=== PATIENT | male | born 1965 | race Caucasian/White ===

== ENCOUNTER → 2023-04-13 | Outpatient (CLI) | payer MEDICAID ==
--- NOTE | 2023-04-14 07:28 | CA ---
Transthoracic Echo Report Name: Dominique Claire Age: 57 Gender: M : 1965 Exam Date: 04/13/2023 16:58 Exam Location: [facility] Ht (in): 72 Wt (lb): 185 Ordering Physician: Guanakito Mathews MD ([email or web address]) Attending/Referring Phys: Can Repairer Faby Figueroa RDCS Procedure CPT: Indications: I48.91 UNSPECIFIED ATRIAL FIBRILLATION Cardiac Hx: Technical Quality: Fair Contrast 1: Total Dose (mL): Contrast 2: Total Dose (mL): MEASUREMENTS (Male / Female) Normal Values 2D ECHO LV Diastolic Diameter PLAX 4.2 cm 4.2 - 5.9 / 3.9 - 5.3 cm LV Systolic Diameter PLAX 2.8 cm IVS Diastolic Thickness 1.4 cm 0.6 - 1.0 / 0.6 - 0.9 cm LVPW Diastolic Thickness 1.5 cm 0.6 - 1.0 / 0.6 - 0.9 cm LV Relative Wall Thickness 0.7 RV Internal Dim ED PLAX 4.0 cm LA Volume 78.1 cm??? 18 - 58 / 22 - 52 cm??? LA Volume Index 37.7 cm???/m??? 16 - 28 cm???/m??? M-MODE Aortic Root Diameter MM 3.0 cm LA Systolic Diameter MM 3.7 cm LA Ao Ratio MM 1.2 AV Cusp Separation MM 1.3 cm DOPPLER AV Peak Velocity 236.5 cm/s AV Peak Gradient 22.4 mmHg AV Mean Velocity 165.9 cm/s AV Mean Gradient 12.5 mmHg AV Velocity Time Integral 35.4 cm LVOT Peak Velocity 77.7 cm/s LVOT Peak Gradient 2.4 mmHg LVOT Velocity Time Integral 14.2 cm MV Area PHT 5.4 cm??? Mitral E Point Velocity 120.7 cm/s Mitral A Point Velocity 0.7 cm/s Mitral E to A Ratio 175.2 MV Deceleration Time 141.6 ms MV E' Velocity 10.0 cm/s Mitral E to MV E' Ratio 12.1 TR Peak Velocity 279.3 cm/s TR Peak Gradient 31.2 mmHg Right Ventricular Systolic Press 36.1 mmHg FINDINGS Left Ventricle Mildly increased left ventricular wall thickness. Left ventricular cavity size normal. Normal left ventricular systolic function with no obvious regional wall motion abnormalities. Left ventricular ejection fraction is estimated at 55 %. Right Ventricle Mild right ventricular dilatation. Mild pulmonary hypertension. Right Atrium Normal right atrial size. Left Atrium Moderately increased left atrial volume. Mitral Valve Structurally normal mitral valve. Mild mitral annular calcification. Mild-to- moderate mitral regurgitation. Aortic Valve Trileaflet aortic valve. Mild aortic stenosis with a peak gradient of 22 mmHg and a mean gradient of 13 mmHg. No aortic regurgitation. Tricuspid Valve Structurally normal tricuspid valve. Mild to moderate tricuspid regurgitation. Pulmonic Valve Structurally normal pulmonic valve. Pericardium No pericardial effusion. Aorta Normal size aortic root and proximal ascending aorta. CONCLUSIONS Patient in rapid Afib Sesntivity and sepcificity of LV systolic function assessment is reduced dueto hgih HR Overall Normal LV systolic function LVEF 55% Calcific thickening of aortic valve with mild stenosis. Mean gradient 13 mmHg. Moderate LA dilatation Moderate mitral regurgitation. Previewed by: Dr Guanakito Mathews (Electronically Signed) Final Date: 14 April 2023 07:28
== END | disposition home or self-care (01) ==
LOC: RADECHMAIN 16:39
PROVIDERS: ATTEND Student in an Organized Health Care Education/Training Program
DX: I34.0 Nonrheumatic mitral (valve) insufficiency (principal); I48.91 Unspecified atrial fibrillation
CPT/HCPCS: 93306

== ENCOUNTER 2023-04-17 09:10 | Day surgery (SDC) | payer MEDICAID ==
[2023-04-17] MEDS ORDERED: LACTATED RINGERS 1,000 ML IV ONE (09:30)
[2023-04-17 09:52] LABS: Glucose,Whole Blood 133 mg/dL (70-110)
[2023-04-17 10:09] VITALS: TEMP 96.9
[2023-04-17] MEDS ORDERED: LIDOCAINE 1% (10MG/ML) FOR IV START INTRADERMA PRN (10:18)
[2023-04-17] MEDS ORDERED: LACTATED RINGERS 1,000 ML IV SCH (10:18)
[2023-04-17] MEDS ORDERED: LIDOCAINE 1% INJ 10MG/ML (20 ML MDV) ONE (10:27)
[2023-04-17] MEDS ORDERED: PROPOFOL 10 MG/ML 20 ML VIAL IV ONE (10:27)
[2023-04-17] MEDS ORDERED: BENZOCAINE SPRAY 1 CAN TOPICAL ONE (10:29)
[2023-04-17 12:45] VITALS: BP 132/89; PULSE 69; RESP 16
--- NOTE | 2023-04-17 15:11 | P.TEE ---
Date of Procedure: 04/17/23 Description of Procedure(s): Procedure performed: 1. Transesophageal Echocardiogram with color flow doppler, pulsed wave doppler and continuous wave doppler, 2. Synchronized cardioversion 3. Bubble study Indications: Persistent Atrial Fibrillation Moderate conscious sedation: Moderate conscious sedation was supplied by anesthesia, see separate report. PROCEDURE: After the risks, benefits and alternatives of the above mentioned procedure was explained in detail with the patient, informed consent was obtained. Anesthesia team provided sedation. The throat was sprayed with Hurricane to anesthetize the throat. A lubricated Omni probe was then introduced into the esophagus and stomach and multiple views were obtained. 2D echo with color flow doppler, pulsed wave doppler and continuous wave doppler was utilized. Agitated saline bubbles were injected to assess for any intra- atrial shunt. The probe was then removed. There was no thrombus noted and therefore patient underwent synchronized cardioversion x 1 with 150J with resultant sinus rhythm. Patient tolerated the procedure well. Patient was transferred to the post procedure area in stable and satisfactory condition. Complications: none FINDINGS Left Atrium : [Moderate LA dilatation. No evidence of mass or thrombus seen] Left Atrial Appendage: [No evidence of thrombus or mass seen in IRMA] Inter atrial septum: [Intact inter-atrial septum with no right to left shunt on bubble study] Left Ventricle: [Normal global LV size and systolic function] Right Atrium: [Normal overall RV size] Right Ventricle: [Normal global RV size and systolic function] Aortic Valve: [Structurally normal Trileaflet, with mild to moderate calcifi cation. No regurgitation, or significant stenosis. ] Mitral Valve: [Mild functional regurgitation on doppler assessment] Pulmonic Valve: [No significant regurgitation.] Tricuspid Valve: [Structurally normal. ] Ascending aorta, Aortic root and Aortic arch: [Mild intimal thickening. Calcification seen] Desceding aorta: [Calcific atheroma seen] CONCLUSION: 1. No thrombus in LA or IRMA. 2. Negative bubble study with no right to left intracardiac shunt 3. Mild functional Mitral regurgitation due to moderate LA dilatation Successful WESLEY CV 1 attempt 150 J
== END 2023-04-17 12:36 | disposition home or self-care (01) ==
LOC: OR 09:10
PROVIDERS: ATTEND Student in an Organized Health Care Education/Training Program
DX: I34.0 Nonrheumatic mitral (valve) insufficiency (principal); I48.91 Unspecified atrial fibrillation; I10 Essential (primary) hypertension; E11.9 Type 2 diabetes mellitus without complications; E78.5 Hyperlipidemia, unspecified; F41.9 Anxiety disorder, unspecified; F10.90 Alcohol use, unspecified, uncomplicated; K60.4 Rectal fistula; F17.290 Nicotine dependence, other tobacco product, uncomplicated; Z79.84 Long term (current) use of oral hypoglycemic drugs; Z79.01 Long term (current) use of anticoagulants; Z79.899 Other long term (current) drug therapy
CPT/HCPCS: 93312; 93320; 93325; 92960; J2001; J2704

== ENCOUNTER 2023-07-07 07:46 | Day surgery (SDC) | payer MEDICAID ==
[~2023-07-07 07:46] MED LIST: LIDOCAINE 1% (10MG/ML) FOR IV START INTRADERMA PRN
[2023-07-07] MEDS: LACTATED RINGERS 1,000 ML IV SCH (08:24)
[2023-07-07 08:37] LABS: Glucose,Whole Blood 150 mg/dL (70-110)
[2023-07-07] MEDS ORDERED: PROPOFOL 10 MG/ML 20 ML VIAL IV ONE (08:51)
[2023-07-07] MEDS ORDERED: MIDAZOLAM 2 MG/2 ML VIAL ONE (08:51)
[2023-07-07] MEDS ORDERED: fentaNYL (PF) 50 MCG/ML 2 ML AMP ONE (08:51)
--- NOTE | 2023-07-07 09:10 | P.PCN ---
Date of Procedure: 07/07/23 Procedure(s) Performed: BRIEF HISTORY: Patient is a 58-year-old pleasant white male scheduled for an elective colonoscopy as a part of screening for colon cancer. PROCEDURE PERFORMED: Colonoscopy. PREOPERATIVE DIAGNOSIS: Screening for colon cancer. IV sedation per Anesthesia. PROCEDURE: After informed consent was obtained, the patient, was brought into the endoscopy unit. IV sedation was administered by Anesthesia under continuous monitoring. Digital rectal examination was normal. Initially the Olympus CF-160 flexible video colonoscope was then inserted in the rectum, gradually advanced into the cecum without any difficulty. Careful examination was performed as the scope was gradually being withdrawn. Ileocecal valve and the appendiceal orifice were visualized and appeared normal. Prep was excellent. Mucosa of the cecum, ascending colon, transverse colon, descending colon, sigmoid colon, and rectum appeared normal. Scattered sigmoid diverticulosis Retroflexion was performed in the rectum and no lesions were seen. The patient tolerated the procedure well. IMPRESSION: Normal-appearing colon from rectum to cecum with no evidence of colorectal neoplasia. Scattered sigmoid diverticulosis. RECOMMENDATIONS: Findings of this examination were discussed with the patient as well as his family. He was advised to have repeat screening colonoscopy in 10 years..
[2023-07-07 09:11] VITALS: RESP 16; TEMP 97.8
[2023-07-07 09:48] VITALS: BP 113/73; PULSE 69
== END 2023-07-07 09:49 | disposition home or self-care (01) ==
LOC: ORWHC2ENDO 07:46
PROVIDERS: ATTEND Internal Medicine Gastroenterology
DX: Z12.11 Encounter for screening for malignant neoplasm of colon (principal); K57.30 Diverticulosis of large intestine without perforation or abscess without bleeding; I10 Essential (primary) hypertension; E11.9 Type 2 diabetes mellitus without complications; F41.9 Anxiety disorder, unspecified; Z87.891 Personal history of nicotine dependence; Z79.01 Long term (current) use of anticoagulants; Z79.84 Long term (current) use of oral hypoglycemic drugs; Z79.899 Other long term (current) drug therapy
CPT/HCPCS: 45378; J2250; J3010; J2704